=== PATIENT | female | born 1945 | race Two or more races ===

== ENCOUNTER 2017-08-14 23:16 | Emergency (ER) | payer MEDICARE, OTHER ==
[~2017-08-14] VITALS: Ht 160 cm; Wt 72.6 kg
[~2017-08-14 23:16] MED LIST: ATEN100T PO; METF-442 PO
[2017-08-15 00:40] VITALS: BP 149/86
--- NOTE | 2017-08-15 01:40 | NUR ---
Pt ARRIVED TO ER C/O RT FOOT/RT PINKY TOE PAIN. Pt WAITING IN BED IN STABLE CONDITION.
--- NOTE | 2017-08-15 01:50 | NUR ---
BEING SEEN BY
--- NOTE | 2017-08-15 02:17 | NUR ---
XRAY BEING TAKEN AT BEDSIDE
[2017-08-15] MEDS ORDERED: HYDROCODONE/APAP 5/325MG 1 EACH TABLET PO ONE (02:30)
[2017-08-15] MEDS ORDERED: ONDANSETRON 4 MG TAB.RAPDIS SL ONE (02:30)
[2017-08-15] MEDS ORDERED: HYDROCODONE/APAP 5/325MG 1 EACH TABLET ONE (02:31)
[2017-08-15] MEDS ORDERED: ONDANSETRON 4 MG TAB.RAPDIS ONE (02:32)
--- NOTE | 2017-08-15 03:15 | NUR ---
nicole & norco 5 po given
--- NOTE | 2017-08-15 03:51 | NUR ---
Patient discharged to home in stable condition. Written and verbal after care instructions given. Patient verbalizes understanding of instruction. left with daughter. walking in steady gait, stable condition.
== END 2017-08-15 03:53 | disposition home or self-care (01) ==
LOC: ER 23:17
DX: S90.31XA Contusion of right foot, initial encounter (principal); I10 Essential (primary) hypertension; E11.9 Type 2 diabetes mellitus without complications; E03.9 Hypothyroidism, unspecified; Z79.84 Long term (current) use of oral hypoglycemic drugs; W22.03XA Walked into furniture, initial encounter; Y93.89 Activity, other specified; Y92.89 Other specified places as the place of occurrence of the external cause; Y99.8 Other external cause status
CPT/HCPCS: 73630-TC; A4606; Q0162; Z7610